=== PATIENT | male | born 1990 | race Caucasian/White ===

== ENCOUNTER 2021-01-29 15:29 | Inpatient (IN) | payer OTHER ==
[~2021-01-29] VITALS: Ht 167.6 cm; Wt 76.4 kg
[2021-01-29] MEDS ORDERED: ATEN50 PO (15:42)
[2021-01-29 16:27] LABS: BASOPHILS ABSOLUTE AUTO 0.04 K/mm3 (0.00-0.23); BASOPHILS PERCENT AUTO 0 % (0-2); EOSINOPHILS PERCENT AUTO 0 % (0-6); Hematocrit 41.9 % (37.0-53.0); Hemoglobin 15.1 g/dL (13.5-17.5); IMMATURE GRAN ABSOLUTE AUTO 0.09 K/mm3 (0.00-0.10); IMMATURE GRAN PERCENT AUTO 1 % (0-1); LYMPHOCYTES ABSOLUTE AUTO 1.57 K/mm3 (0.84-5.20); LYMPHOCYTES PERCENT AUTO 14 % (21-46); MONOCYTES ABSOLUTE AUTO 1.11 K/mm3 (0.16-1.47); MONOCYTES PERCENT AUTO 10 % (4-13); Mean Corpuscular HGB 30.2 pg (26.0-34.0); Mean Corpuscular Volume 84 fL (80-100); Mean Platelet Volume 9.3 fL (9.1-12.4); NEUTROPHILS ABSOLUTE AUTO 8.79 K/mm3 (1.96-9.15); NEUTROPHILS PERCENT AUTO 76 % (41-73); Platelet Count 184 K/mm3 (150-400); RDW Coefficient Variation 14.5 % (11.7-14.2); RDW Standard Deviation 43.9 fL (35.1-46.3)
[2021-01-29 16:37] LABS: Alanine Aminotransfer (ALT/SGP 109 U/L (12-78); Albumin, Blood 3.9 g/dL (3.4-5.0); Albumin/Globulin Ratio 0.9 (0.8-1.8); Alk Phos 87 U/L (50-136); Anion Gap 11 mmol/L (6-16); Aspartate Aminotrans (AST/SGOT 38 U/L (12-37); Bilirubin, Total 0.8 mg/dL (0.1-1.0); Blood Urea Nitrogen 6 mg/dL (8-24); Bun/Creatinine Ratio 7.6 (12.0-20.0); CO2, Blood 26 mmol/L (21-32); Calcium, Blood 8.8 mg/dL (8.5-10.1); Chloride, Blood 100 mmol/L (98-108); Creatinine, Blood 0.79 mg/dL (0.60-1.20); Globulin, Blood 4.2 g/dL (2.2-4.0); Glomerular Filtration Rate >60 (60-); Glucose, Blood 137 mg/dL (70-99); Potassium, Blood 3.2 mmol/L (3.5-5.5); Sodium, Blood 137 mmol/L (136-145); Total Protein, Blood 8.1 g/dL (6.4-8.2)
[2021-01-29] MEDS ORDERED: HYDCHL25 PO (19:37)
[2021-01-29] MEDS ORDERED: NAPROXEN500 MG PO (19:38)
[2021-01-29] MEDS ORDERED: Atarax10 MG PO (19:38)
[2021-01-30 05:15] LABS: BASOPHILS ABSOLUTE AUTO 0.03 K/mm3 (0.00-0.23); BASOPHILS PERCENT AUTO 0 % (0-2); EOSINOPHILS ABSOLUTE AUTO 0.02 K/mm3 (0.00-0.68); EOSINOPHILS PERCENT AUTO 0 % (0-6); Hematocrit 39.3 % (37.0-53.0); Hemoglobin 13.7 g/dL (13.5-17.5); IMMATURE GRAN ABSOLUTE AUTO 0.07 K/mm3 (0.00-0.10); IMMATURE GRAN PERCENT AUTO 1 % (0-1); LYMPHOCYTES ABSOLUTE AUTO 1.28 K/mm3 (0.84-5.20); LYMPHOCYTES PERCENT AUTO 17 % (21-46); MONOCYTES ABSOLUTE AUTO 0.58 K/mm3 (0.16-1.47); MONOCYTES PERCENT AUTO 8 % (4-13); Mean Corpuscular HGB 30.2 pg (26.0-34.0); Mean Corpuscular HGB Conc 34.9 g/dL (31.5-36.5); Mean Corpuscular Volume 87 fL (80-100); Mean Platelet Volume 9.7 fL (9.1-12.4); NEUTROPHILS ABSOLUTE AUTO 5.38 K/mm3 (1.96-9.15); NEUTROPHILS PERCENT AUTO 73 % (41-73); Platelet Count 149 K/mm3 (150-400); RDW Coefficient Variation 14.7 % (11.7-14.2); RDW Standard Deviation 46.3 fL (35.1-46.3); Red Blood Cell Count 4.53 M/mm3 (4.30-5.90); White Blood Cell Count 7.36 K/mm3 (4.00-11.30)
[2021-01-30 05:34] LABS: Anion Gap 3 mmol/L (6-16); Blood Urea Nitrogen 8 mg/dL (8-24); Bun/Creatinine Ratio 9.4 (12.0-20.0); CO2, Blood 32 mmol/L (21-32); Calcium, Blood 8.1 mg/dL (8.5-10.1); Chloride, Blood 99 mmol/L (98-108); Creatinine, Blood 0.85 mg/dL (0.60-1.20); Glomerular Filtration Rate >60 (60-); Glucose, Blood 113 mg/dL (70-99); Potassium, Blood 3.9 mmol/L (3.5-5.5); Sodium, Blood 134 mmol/L (136-145)
--- NOTE | 2021-01-30 05:36 | NUR ---
SHIFT SUMMARY: PT ADMITTED TO MEDICAL FLOOR FROM ER TONIGHT W/ CELLULITIS IF LUE. AAOX4. TACHYCARDIC W/ RATE 117-125. L ELBOW RED, SWOLLEN, HOT TO TOUCH. REDNESS OUTLINED. LUE ELEVATED ON PILLOW. IV FLUIDS INFUSING CONTINUOUSLY PER ORDERS. IV ABT INFUSED. MEDICATED FOR LUE PAIN, PT STATES HELPFUL AND HAS BEEN ABLE TO SLEEP SOME OVERNIGHT. CIWA SCORE OF 4. WCTM.
--- NOTE | 2021-01-30 17:20 | NUR ---
SHIFT SUMMARY PT ALERT ORIENTED AND INDEPENDENT IN THE ROOM. PT RECEIVED MEDICATIONS FOR PAIN PER EMAR. PT ALSO C/O OF ANXIETY BECAUSE HE WAS WORRIED ABOUT HIS DUI; MEDICATED HIM ONCE FOR ANXIETY. ENCOURAGE TO ELEVATE THE PT ARM. BED IS IN THE LOWEST POSITION AND CALL LIGHT WITHIN REACH.
--- NOTE | 2021-01-30 19:15 | NUR ---
ASSUMED CARE RECEIVED REPORT FROM LAY FOX. PT LYING IN BED, REPORTS PAIN 8/10, STATES HE "FEELS LIKE CRAP." WILL MEDICATE PER EMAR. NO OTHER SIGNS OF DISTRESS NOTED. CALL LIGHT, POSSESSIONS IN REACH.
[2021-01-31 05:20] LABS: Hematocrit 39.8 % (37.0-53.0); Hemoglobin 13.8 g/dL (13.5-17.5); Mean Corpuscular HGB 30.1 pg (26.0-34.0); Mean Corpuscular HGB Conc 34.7 g/dL (31.5-36.5); Mean Corpuscular Volume 87 fL (80-100); Mean Platelet Volume 10.1 fL (9.1-12.4); Platelet Count 147 K/mm3 (150-400); RDW Coefficient Variation 14.5 % (11.7-14.2); RDW Standard Deviation 45.4 fL (35.1-46.3); Red Blood Cell Count 4.58 M/mm3 (4.30-5.90); White Blood Cell Count 7.45 K/mm3 (4.00-11.30)
[2021-01-31 05:52] LABS: Anion Gap 5 mmol/L (6-16); Blood Urea Nitrogen 8 mg/dL (8-24); Bun/Creatinine Ratio 8.7 (12.0-20.0); CO2, Blood 30 mmol/L (21-32); Calcium, Blood 8.8 mg/dL (8.5-10.1); Chloride, Blood 98 mmol/L (98-108); Creatinine, Blood 0.92 mg/dL (0.60-1.20); Glomerular Filtration Rate >60 (60-); Glucose, Blood 88 mg/dL (70-99); Potassium, Blood 3.8 mmol/L (3.5-5.5); Sodium, Blood 133 mmol/L (136-145)
--- NOTE | 2021-01-31 06:22 | NUR ---
MIX CHEMIST SUMMARY PT ASLEEP, IN NO ACUTE DISTRESS. VS REVIEWED,WNL; AFEBRILE AT THIS TIME. REDNESS TO LUE APPEARS TO BE IMPROVING, SMALL AMOUNT OF INCREASE IN SIZE NOTED, RE-MARKED WITH PERMANENT MARKER. PT STATES PAIN/DISCOMFORT IS IMPROVED FROM YESTERDAY. HAS BEEN SLEEPING OFF/ON THROUGHOUT NIGHT, REPORTS PRN TRAZODONE HELPED. PAIN CONTROLLED WITH MEDS PER EMAR AND ICE PACKS TO LUE. CIWA'S STABLE. NO OTHER ACUTE CHANGES TO REPORT OVERNIGHT. DENIES NEEDS AT THIS TIME. CALL LIGHT, POSSESSIONS IN REACH. WILL CONTINUE TO PROVIDE CARE UNTIL REPORT GIVEN TO DAY RN.
--- NOTE | 2021-01-31 18:37 | NUR ---
PT'S L ARM ELEVATED AND ICED WITH MARGINS OF REDNESS MARKED. MAX TEMPERATURE 100.4; PT GIVEN ACETAMINOPHEN PER MAR. ABX ADMINISTERED PER MAR. PT DENIES ADDITIONAL CONCERNS AT THIS TIME.
--- NOTE | 2021-01-31 19:10 | NUR ---
ASSUMED CARE RECEIVED REPORT FROM LAY WONG. PT UP TO SHOWER, NO ACUTE DISTRESS NOTED. DENIES FURTHER NEEDS AT THIS TIME. CALL LIGHT, POSSESSIONS IN REACH.
[2021-02-01 05:12] LABS: Hemoglobin 13.3 g/dL (13.5-17.5); Mean Corpuscular HGB 30.4 pg (26.0-34.0); Mean Corpuscular Volume 87 fL (80-100); Mean Platelet Volume 10.3 fL (9.1-12.4); Platelet Count 167 K/mm3 (150-400); RDW Coefficient Variation 14.3 % (11.7-14.2); RDW Standard Deviation 45.1 fL (35.1-46.3); Red Blood Cell Count 4.37 M/mm3 (4.30-5.90)
[2021-02-01 05:44] LABS: Anion Gap 5 mmol/L (6-16); Blood Urea Nitrogen 10 mg/dL (8-24); Bun/Creatinine Ratio 10.4 (12.0-20.0); CO2, Blood 29 mmol/L (21-32); Calcium, Blood 8.7 mg/dL (8.5-10.1); Chloride, Blood 101 mmol/L (98-108); Creatinine, Blood 0.96 mg/dL (0.60-1.20); Glomerular Filtration Rate >60 (60-); Glucose, Blood 90 mg/dL (70-99); Potassium, Blood 3.5 mmol/L (3.5-5.5); Sodium, Blood 135 mmol/L (136-145)
--- NOTE | 2021-02-01 07:25 | NUR ---
SCHOOL PSYCHOMETRIST SUMMARY PT SLEEPING, IN NO ACUTE DISTRESS. VS REVIEWED,WNL, AFEBRILE. REDNESS TO LUE HAS SUBSIDED, PT REPORTS FEELING MORE COMFORTABLE. PAIN MANAGED WITH MEDS PER EMAR, WITH EFFECTIVE RELIEF. NO ACUTE CHANGES IN CONDITION NOTED OVERNIGHT, PT SLEPT FOR MUCH OF THE NIGHT. NO ACUTE NEEDS ASSESSED AT THIS TIME, CALL LIGHT, POSSESSIONS IN REACH. REPORT GIVEN TO LAY OAKES.
[2021-02-01] MEDS ORDERED: HYDR1TAB94 PO (13:54)
[2021-02-01] MEDS ORDERED: CLIN150 PO (13:55)
[2021-02-01] MEDS ORDERED: IBUP400 PO (13:56)
--- NOTE | 2021-02-01 14:18 | NUR ---
DISCHARGED DC'D IV, CATHETER INTACT. REVIEWED DC INSTRUCTIONS W/PT; VERBALIZED UNDERSTANDING. ADVISED PT TO F/U W/PCP; PT COULD NOT REMEMBER PCP'S NAME BUT STATED WAS AWARE OF CELLULITIS TO LUE. PT DECLINED WC OUT, STATING WANTED TO WALK. LEFT UNIT BY AMBULATION W/POSSESSIONS AND DC PAPERWORK IN HAND. CALLED PRESCRIPTIONS INTO [facility] PER PT REQUEST.
== END 2021-02-01 14:15 | disposition home or self-care (01) | DRG 872 ==
LOC: ER 15:29 → MEDS 15:30 → SURS 15:30 → MEDS 22:24
PROVIDERS: Internal Medicine; Nurse Practitioner Acute Care; Physician Assistant; ADMIT Internal Medicine
DX: A41.9 Sepsis, unspecified organism (principal); L03.114 Cellulitis of left upper limb; I10 Essential (primary) hypertension; F41.9 Anxiety disorder, unspecified; F10.10 Alcohol abuse, uncomplicated; F17.200 Nicotine dependence, unspecified, uncomplicated; Z98.890 Other specified postprocedural states; Z79.899 Other long term (current) drug therapy
CPT/HCPCS: 36415; 73080; 73201; 80048; 80053; 83605; 84145; 85025; 85027; 85651; 86140; 87040; 96365; 96366; 96372; 96375; 96376; 99285-25; A9270; G0378; J1170; J1650; J1885; J2405; J3480; J7030; J7040; Q9967